=== PATIENT | female | born 1990 | race Caucasian/White ===

== ENCOUNTER 2020-01-19 11:46 | Emergency (ER) | payer OTHER | END 2020-01-19 13:24 | disposition home or self-care (01) | LOC: JVIRT 11:46 | DX: Z03.818 Encounter for observation for suspected exposure to other biological agents ruled out (principal) | CPT/HCPCS: C9803; G2012-GT; U0003 ==

== ENCOUNTER 2020-02-23 09:57 | Emergency (ER) | payer OTHER | END 2020-02-23 11:57 | disposition home or self-care (01) | LOC: JVIRT 09:57 | DX: Z11.52 Encounter for screening for COVID-19 (principal) | CPT/HCPCS: C9803; G2012-GT; U0003 ==

== ENCOUNTER 2020-04-21 12:34 | Emergency (ER) | payer OTHER | END 2020-04-21 13:45 | disposition home or self-care (01) | LOC: JVIRT 12:34 | DX: J02.9 Acute pharyngitis, unspecified (principal); Z20.822 Contact with and (suspected) exposure to COVID-19 | CPT/HCPCS: C9803; G2251-GT; Q3014-GT; U0003 ==